=== PATIENT | female | born 1935 | race Caucasian/White ===

== ENCOUNTER 2016-09-23 13:15 | Emergency (ER) | payer MEDICARE, OTHER ==
[~2016-09-23] VITALS: Ht 165.1 cm; Wt 54.5 kg
[~2016-09-23 13:15] MED LIST: AMLO-512 PO; DULO30CA2 PO; HYDR-2924 PO; HYDR25TA PO; LABE200T PO; METF500T4 PO; PHEN50 PO; PHENY100 PO
[2016-09-23] MEDS ORDERED: SODIUM CHLORIDE 0.9% 1,000 ML IV ONE (15:45)
[2016-09-23 16:14] LABS: APPEARANCE,URINE CLEAR (CLEAR); GLUCOSE, URINE (UA) NEGATIVE (NEGATIVE); KETONES,URINE NEGATIVE (NEGATIVE); LEUKOCYTE ESTERASE ,URINE NEGATIVE (NEGATIVE); OCCULT BLOOD,URINE NEGATIVE (NEGATIVE); PROTEIN,URINE NEGATIVE (NEGATIVE)
[2016-09-23 16:17] LABS: ADD UA MICROSCOPIC NO
[2016-09-23 16:20] LABS: ANION GAP 9 mmol/L (8-16); CALCIUM, TOTAL 9.1 mg/dL (8.8-10.5); CARBON DIOXIDE 28 mmol/L (22-29); CHLORIDE 106 mmol/L (98-107); CREATININE 0.65 mg/dL (0.60-1.30); GLOMERULAR FILTR. RATE CALC > 60 mL/min (>60); SODIUM SERUM 143 mmol/L (136-145); UREA NITROGEN, BLOOD 12 mg/dL (7-18)
[2016-09-23 16:22] LABS: BASOPHILS % (AUTO) 0.4 % (0.0-2.0); EOSINOPHILS % (AUTO) 1.2 % (1.0-6.0); HEMATOCRIT 39.3 % (36-46); HEMOGLOBIN 12.9 g/dL (12.0-16.0); LYMPHOCYTES # (AUTO) 2.1 K/uL (1.0-4.8); LYMPHOCYTES % (AUTO) 25.9 % (22.0-44.0); MEAN CORPUSCULAR HEMOGLOBIN 29.5 pg (26.0-34.0); MEAN CORPUSCULAR HGB CONC 32.9 G/dL (31.0-37.0); MEAN CORPUSCULAR VOLUME 90 fL (80-100); MONOCYTES # (AUTO) 0.4 K/uL (0.1-1.0); MONOCYTES % (AUTO) 4.5 % (2.0-9.0); NEUTROPHILS # (AUTO) 5.5 K/uL (1.8-7.7); PLATELET COUNT (AUTO) 196 K/uL (150-450); RED BLOOD CELL COUNT(AUTO) 4.38 MIL/uL (4.00-5.20); RED CELL DISTRIBUTION WIDTH 13.5 % (11.5-14.5); WHITE BLOOD COUNT (AUTO) 8.1 K/uL (4.5-11.0)
[2016-09-23 16:28] LABS: ALANINE AMINOTRANSFERASE 26 U/L (12-78); ALBUMIN 3.8 g/dL (3.4-5.0); ASPARTATE AMINOTRANSFERASE 19 U/L (15-37); BILIRUBIN,TOTAL 0.4 mg/dL (0.1-1.0); TOTAL PROTEIN, SERUM 7.2 g/dL (6.4-8.2)
[2016-09-23 16:39] LABS: B-TYPE NATRIURETIC PEPTIDE 105 pg/mL (0-100)
[2016-09-23 17:20] VITALS: BP 185/87
== END 2016-09-23 18:11 | disposition home or self-care (01) ==
LOC: EMS 13:17
DX: M12.852 Other specific arthropathies, not elsewhere classified, left hip (principal); M16.12 Unilateral primary osteoarthritis, left hip; F20.9 Schizophrenia, unspecified; F41.9 Anxiety disorder, unspecified; I10 Essential (primary) hypertension; F32.9 Major depressive disorder, single episode, unspecified; E78.00 Pure hypercholesterolemia, unspecified
CPT/HCPCS: 36415; 71010; 73503; 80053; 80185; 80307; 81003; 83880; 84484; 85025; 93005; 96360; 96361; 99285; G0480; J7030

== ENCOUNTER 2017-01-20 17:57 | Emergency (ER) | payer MEDICARE, OTHER ==
[~2017-01-20] VITALS: Ht 165.1 cm; Wt 54.5 kg
[2017-01-20] MEDS ORDERED: METO-323 PO (18:29)
[2017-01-20] MEDS ORDERED: LEVE250T55 PO (18:29)
[2017-01-20] MEDS ORDERED: AMLO-512 PO (18:29)
[2017-01-20] MEDS ORDERED: BUSP5TAB20 PO (18:29)
[2017-01-20] MEDS ORDERED: LOSA25TA21 PO (18:29)
[2017-01-20] MEDS ORDERED: LORazepam 1 MG TABLET PO ONE (22:45)
[2017-01-20] MEDS ORDERED: KETOROLAC TROMETHAMINE 60 MG/2 ML VIAL IM ONE (22:45)
[2017-01-20 22:54] LABS: BASOPHILS % (AUTO) 0.5 % (0.0-2.0); EOSINOPHILS % (AUTO) 0.8 % (1.0-6.0); HEMATOCRIT 38.2 % (36-46); LYMPHOCYTES # (AUTO) 2.8 K/uL (1.0-4.8); LYMPHOCYTES % (AUTO) 36.2 % (22.0-44.0); MEAN CORPUSCULAR HEMOGLOBIN 30.6 pg (26.0-34.0); MEAN CORPUSCULAR VOLUME 90 fL (80-100); MONOCYTES # (AUTO) 0.5 K/uL (0.1-1.0); MONOCYTES % (AUTO) 6.3 % (2.0-9.0); NEUTROPHILS # (AUTO) 4.4 K/uL (1.8-7.7); NEUTROPHILS % (AUTO) 56.2 % (40.0-70.0); PLATELET COUNT (AUTO) 182 K/uL (150-450); RED BLOOD CELL COUNT(AUTO) 4.26 MIL/uL (4.00-5.20); RED CELL DISTRIBUTION WIDTH 14.5 % (11.5-14.5); WHITE BLOOD COUNT (AUTO) 7.8 K/uL (4.5-11.0)
[2017-01-20 22:58] VITALS: BP 188/87
[2017-01-20 23:04] LABS: ANION GAP 8 mmol/L (8-16); CARBON DIOXIDE 28 mmol/L (22-29); CHLORIDE 105 mmol/L (98-107); CREATININE 0.79 mg/dL (0.60-1.30); GLOMERULAR FILTR. RATE CALC > 60 mL/min (>60); POTASSIUM 3.9 mmol/L (3.5-5.1); SODIUM SERUM 141 mmol/L (136-145); UREA NITROGEN, BLOOD 19 mg/dL (7-18)
== END 2017-01-21 00:17 | disposition home or self-care (01) ==
LOC: EMS 17:59
DX: R07.89 Other chest pain (principal); F20.9 Schizophrenia, unspecified; I10 Essential (primary) hypertension; E78.00 Pure hypercholesterolemia, unspecified
CPT/HCPCS: 36415; 80048; 84484; 85025; 93005; 96372; 99285; J1885

== ENCOUNTER 2017-11-17 21:49 | Emergency (ER) | payer MEDICARE, OTHER ==
[~2017-11-17] VITALS: Ht 165.1 cm; Wt 54.0 kg
[~2017-11-17 21:49] MED LIST changes: +BUSP5TAB20 PO; -DULO30CA2 PO; -HYDR-2924 PO; -HYDR25TA PO; -LABE200T PO; +LEVE250T55 PO; +LOSA25TA21 PO; -METF500T4 PO; +METO25XL PO
[2017-11-18 01:04] LABS: BASOPHILS % (AUTO) 0.7 % (0.0-2.0); EOSINOPHILS % (AUTO) 0.3 % (1.0-6.0); HEMATOCRIT 41.5 % (36-46); HEMOGLOBIN 14.2 g/dL (12.0-16.0); LYMPHOCYTES # (AUTO) 2.4 K/uL (1.0-4.8); LYMPHOCYTES % (AUTO) 21.8 % (22.0-44.0); MEAN CORPUSCULAR HEMOGLOBIN 30.1 pg (26.0-34.0); MEAN CORPUSCULAR HGB CONC 34.3 G/dL (31.0-37.0); MEAN CORPUSCULAR VOLUME 88 fL (80-100); MONOCYTES # (AUTO) 0.5 K/uL (0.1-1.0); MONOCYTES % (AUTO) 4.6 % (2.0-9.0); NEUTROPHILS % (AUTO) 72.6 % (40.0-70.0); PLATELET COUNT (AUTO) 212 K/uL (150-450); RED BLOOD CELL COUNT(AUTO) 4.73 MIL/uL (4.00-5.20)
[2017-11-18 01:08] LABS: ANION GAP 7 mmol/L (8-16); CALCIUM, TOTAL 9.2 mg/dL (8.8-10.5); CARBON DIOXIDE 33 mmol/L (22-29); CHLORIDE 101 mmol/L (98-107); GLOMERULAR FILTR. RATE CALC 60 mL/min (>60); GLUCOSE,RANDOM 194 mg/dL (70-110); POTASSIUM 3.9 mmol/L (3.5-5.1); SODIUM SERUM 141 mmol/L (136-145); UREA NITROGEN, BLOOD 26 mg/dL (7-18)
[2017-11-18 01:15] LABS: ALANINE AMINOTRANSFERASE 51 U/L (12-78); ALBUMIN 4.1 g/dL (3.4-5.0); ALKALINE PHOSPHATASE 107 U/L (46-116); ASPARTATE AMINOTRANSFERASE 35 U/L (15-37); BILIRUBIN,TOTAL 0.4 mg/dL (0.1-1.0); PHENYTOIN (DILANTIN) 23.7 mcg/mL (10.0-20.0); TOTAL PROTEIN, SERUM 8.1 g/dL (6.4-8.2)
[2017-11-18 01:26] LABS: AMPHET/METH SCREEN,URINE NEGATIVE (NEGATIVE); APPEARANCE,URINE CLEAR (CLEAR); BARBITURATE SCREEN, URINE NEGATIVE (NEGATIVE); BENZODIAZEPINES SCREEN,URINE NEGATIVE (NEGATIVE); BILIRUBIN,URINE NEGATIVE (NEGATIVE); CANNABINOID SCREEN,URINE NEGATIVE (NEGATIVE); COCAINE SCREEN,URINE NEGATIVE (NEGATIVE); GLUCOSE, URINE (UA) NEGATIVE (NEGATIVE); KETONES,URINE NEGATIVE (NEGATIVE); LEUKOCYTE ESTERASE ,URINE TRACE (NEGATIVE); METHADONE SCREEN, URINE NEGATIVE (NEGATIVE); NITRATE,URINE NEGATIVE (NEGATIVE); OCCULT BLOOD,URINE NEGATIVE (NEGATIVE); OPIATE SCREEN,URINE NEGATIVE (NEGATIVE); PH,URINE 7.5 (5.0-8.0); PROTEIN,URINE NEGATIVE (NEGATIVE); UROBILINOGEN,URINE 0.2 mg/dL (<=1.0)
[2017-11-18 01:27] LABS: PHENCYCLIDINE SCREEN,URINE NEGATIVE (NEGATIVE)
[2017-11-18 01:42] LABS: BACTERIA,URINE Rare /HPF (None Seen); RBC,URINE 0-2 /HPF (0-2); SQUAMOUS EPITHELIAL CELL,UR Rare /LPF (None Seen)
[2017-11-18] MEDS ORDERED: KETOROLAC TROMETHAMINE 30 MG/ML VIAL IVP ONE (02:30)
[2017-11-18] MEDS ORDERED: LORazepam 2 MG/ML VIAL IVP ONE (02:30)
[2017-11-18] MEDS ORDERED: SODIUM CHLORIDE 0.9% 1,000 ML IV ONE (02:30)
[2017-11-18 04:52] VITALS: BP 140/80
== END 2017-11-18 04:58 | disposition home or self-care (01) ==
LOC: EMS 21:50
DX: R07.89 Other chest pain (principal); T42.0X5A Adverse effect of hydantoin derivatives, initial encounter; F41.9 Anxiety disorder, unspecified; E78.00 Pure hypercholesterolemia, unspecified; I10 Essential (primary) hypertension; G40.909 Epilepsy, unspecified, not intractable, without status epilepticus; Y92.89 Other specified places as the place of occurrence of the external cause; Z79.899 Other long term (current) drug therapy
CPT/HCPCS: 36415; 80053; 80185; 80307; 81001; 85025; 87086; 93005; 96374; 96375; 99285; G0480; J1885; J2060; J7030

== ENCOUNTER 2018-05-14 09:57 | Emergency (ER) | payer MEDICARE, OTHER ==
[~2018-05-14] VITALS: Ht 162.6 cm; Wt 62.5 kg
[~2018-05-14 09:57] MED LIST changes: -LOSA25TA21 PO; +LOSA25TA41 PO; -PHEN50 PO
[2018-05-14] MEDS ORDERED: KETOROLAC TROMETHAMINE 30 MG/ML VIAL IVP ONE (10:30)
[2018-05-14] MEDS ORDERED: ACETAMINOPHEN 325 MG TABLET PO ONE (10:30)
[2018-05-14] MEDS ORDERED: LIDOCAINE 5% TRANSDERMAL PATCH TD ONE (10:30)
[2018-05-14] MEDS ORDERED: CYCLOBENZAPRINE HCL 10 MG TABLET PO ONE (10:30)
[2018-05-14] MEDS ORDERED: MORPHINE SULFATE 4 MG/ML SYRINGE IVP ONE (12:30)
[2018-05-14 12:48] VITALS: BP 162/80
== END 2018-05-14 13:41 | disposition home or self-care (01) ==
LOC: EMS 10:00
DX: M54.16 Radiculopathy, lumbar region (principal); M25.562 Pain in left knee; E78.00 Pure hypercholesterolemia, unspecified; I10 Essential (primary) hypertension; F41.9 Anxiety disorder, unspecified; F32.9 Major depressive disorder, single episode, unspecified; F20.9 Schizophrenia, unspecified; G89.29 Other chronic pain; Z90.710 Acquired absence of both cervix and uterus
CPT/HCPCS: 96374; 96375; 99284; J1885; J2270

== ENCOUNTER 2018-05-26 13:54 | Inpatient (IN) | payer MEDICARE, OTHER ==
[~2018-05-26] VITALS: Ht 165.1 cm; Wt 63.5 kg
[2018-05-26] MEDS ORDERED: LORazepam 1 MG TABLET PO ONE (15:00)
[2018-05-26 15:17] LABS: BASOPHILS % (AUTO) 0.2 % (0.0-2.0); EOSINOPHILS % (AUTO) 0.3 % (1.0-6.0); HEMATOCRIT 36.8 % (36-46); HEMOGLOBIN 12.6 g/dL (12.0-16.0); LYMPHOCYTES # (AUTO) 1.6 K/uL (1.0-4.8); LYMPHOCYTES % (AUTO) 19.4 % (22.0-44.0); MEAN CORPUSCULAR HEMOGLOBIN 30.5 pg (26.0-34.0); MEAN CORPUSCULAR HGB CONC 34.3 G/dL (31.0-37.0); MEAN CORPUSCULAR VOLUME 89 fL (80-100); MONOCYTES # (AUTO) 0.5 K/uL (0.1-1.0); MONOCYTES % (AUTO) 6.4 % (2.0-9.0); NEUTROPHILS % (AUTO) 73.7 % (40.0-70.0); PLATELET COUNT (AUTO) 163 K/uL (150-450); RED BLOOD CELL COUNT(AUTO) 4.14 MIL/uL (4.00-5.20); RED CELL DISTRIBUTION WIDTH 13.3 % (11.5-14.5)
[2018-05-26 15:27] LABS: ANION GAP 9 mmol/L (8-16); CALCIUM, TOTAL 8.3 mg/dL (8.8-10.5); CARBON DIOXIDE 27 mmol/L (22-29); CHLORIDE 105 mmol/L (98-107); CREATININE 0.77 mg/dL (0.60-1.30); GLOMERULAR FILTR. RATE CALC > 60 mL/min (>60); GLUCOSE,RANDOM 218 mg/dL (70-110); POTASSIUM 3.7 mmol/L (3.5-5.1); SODIUM SERUM 141 mmol/L (136-145); UREA NITROGEN, BLOOD 19 mg/dL (7-18)
[2018-05-26 15:34] LABS: ALANINE AMINOTRANSFERASE 32 U/L (12-78); ALBUMIN 3.4 g/dL (3.4-5.0); ALKALINE PHOSPHATASE 79 U/L (46-116); ASPARTATE AMINOTRANSFERASE 23 U/L (15-37); BILIRUBIN,TOTAL 0.2 mg/dL (0.1-1.0); CREATINE KINASE, TOTAL ONLY 51 U/L (26-192); PHENYTOIN (DILANTIN) 24.2 mcg/mL (10.0-20.0); TOTAL PROTEIN, SERUM 6.7 g/dL (6.4-8.2)
[2018-05-26 15:41] LABS: B-TYPE NATRIURETIC PEPTIDE 121 pg/mL (0-100)
[2018-05-26 19:27] LABS: APPEARANCE,URINE CLEAR (CLEAR); BILIRUBIN,URINE NEGATIVE (NEGATIVE); GLUCOSE, URINE (UA) 100 mg/dL (NEGATIVE); KETONES,URINE NEGATIVE (NEGATIVE); LEUKOCYTE ESTERASE ,URINE NEGATIVE (NEGATIVE); NITRATE,URINE NEGATIVE (NEGATIVE); OCCULT BLOOD,URINE NEGATIVE (NEGATIVE); PROTEIN,URINE NEGATIVE (NEGATIVE); UROBILINOGEN,URINE 0.2 mg/dL (<=1.0)
[2018-05-26 19:36] LABS: BACTERIA,URINE None Seen /HPF (None Seen); RBC,URINE None Seen /HPF (0-2); SQUAMOUS EPITHELIAL CELL,UR Few /LPF (None Seen)
[2018-05-26] MEDS ORDERED: MAGNESIUM HYDROXIDE SUSPENSION 30 ML UDCUP PO PRN (20:30)
[2018-05-26] MEDS ORDERED: ALBUTEROL SULFATE 2.5 MG/0.5 ML NEB SOLUTION NEB PRN (20:30)
[2018-05-26] MEDS ORDERED: DEXTROSE 50%-WATER 25 GM/50 ML SYRINGE IVP PRN (20:30)
[2018-05-26 23:00] VITALS: BP 148/83
[2018-05-26] MEDS ORDERED: SODIUM CHLORIDE 0.9% 250 ML IV ONE (23:03)
[2018-05-26] MEDS: DOCUSATE SODIUM 100 MG CAPSULE PO SCH (23:16)
[2018-05-26] MEDS: ASPIRIN 81 MG CHEWABLE TABLET PO SCH (23:17)
[2018-05-26] MEDS: AmLODIPine BESYLATE 5 MG TABLET PO SCH (23:18)
[2018-05-26] MEDS: INSULIN LISPRO 100 UNITS/ML SQ PRN (23:26)
[2018-05-27] VITALS (7 sets, daily range): BP systolic 136–180; BP diastolic 69–84
[2018-05-27] MEDS: CefTRIAXone 1 GM/DEXTROSE 50 ML IV SCH ×2 (00:41→23:35)
[2018-05-27 05:14] LABS: GLUCOMETER DEV NAME(LOC) 6N.1; GLUCOSE,POINT OF CARE 146 MG/DL (70-110)
[2018-05-27] MEDS: INSULIN LISPRO 100 UNITS/ML SQ PRN ×3 (06:24→17:09)
[2018-05-27] MEDS: PANTOPRAZOLE SODIUM 40 MG DR TABLET PO SCH (08:30)
[2018-05-27] MEDS: DOCUSATE SODIUM 100 MG CAPSULE PO SCH ×2 (08:30→20:07)
[2018-05-27] MEDS: METOPROLOL SUCCINATE 25 MG ER TABLET PO SCH (08:30)
[2018-05-27] MEDS: LevETIRAcetam 250 MG TABLET PO SCH (08:30)
[2018-05-27] MEDS: ACETAMINOPHEN 325 MG TABLET PO PRN ×2 (08:31→20:07)
[2018-05-27] MEDS: ASPIRIN 81 MG CHEWABLE TABLET PO SCH (08:32)
[2018-05-27 11:04] LABS: GLUCOMETER DEV NAME(LOC) 6N.2; GLUCOSE,POINT OF CARE 146 MG/DL (70-110)
[2018-05-27 11:13] LABS: GLUCOMETER DEV NAME(LOC) 6N.1; GLUCOSE,POINT OF CARE 161 MG/DL (70-110)
[2018-05-27] MEDS ORDERED: ESZOPICLONE 2 MG TABLET PO PRN (12:15)
[2018-05-27] MEDS: MetFORMIN HCL 500 MG TABLET PO SCH (17:14)
[2018-05-27] MEDS: AmLODIPine BESYLATE 5 MG TABLET PO SCH (17:14)
[2018-05-27 19:49] LABS: GLUCOMETER DEV NAME(LOC) 6N.2; GLUCOSE,POINT OF CARE 158 MG/DL (70-110)
[2018-05-27] MEDS: PHENYTOIN SODIUM 100 MG ER CAPSULE PO SCH (20:08)
[2018-05-27 23:39] LABS: GLUCOMETER DEV NAME(LOC) 6N.1; GLUCOSE,POINT OF CARE 108 MG/DL (70-110)
[2018-05-28] MEDS: LORazepam 0.5 MG TABLET PO PRN ×2 (03:48→13:09)
[2018-05-28 04:00] VITALS: BP 171/74
[2018-05-28 06:00] VITALS: BP 163/75
[2018-05-28] MEDS: METOPROLOL SUCCINATE 25 MG ER TABLET PO SCH (06:33)
[2018-05-28 06:59] LABS: GLUCOMETER DEV NAME(LOC) 6N.2; GLUCOSE,POINT OF CARE 140 MG/DL (70-110)
[2018-05-28 07:38] VITALS: BP 175/76
[2018-05-28] MEDS: ASPIRIN 81 MG CHEWABLE TABLET PO SCH (08:38)
[2018-05-28] MEDS: LevETIRAcetam 250 MG TABLET PO SCH (08:38)
[2018-05-28] MEDS: DOCUSATE SODIUM 100 MG CAPSULE PO SCH ×2 (08:38→19:48)
[2018-05-28] MEDS: MetFORMIN HCL 500 MG TABLET PO SCH ×2 (08:39→17:45)
[2018-05-28] MEDS: PANTOPRAZOLE SODIUM 40 MG DR TABLET PO SCH (08:39)
[2018-05-28] MEDS: PHENYTOIN SODIUM 100 MG ER CAPSULE PO SCH ×2 (08:43→19:47)
[2018-05-28] MEDS ORDERED: LevETIRAcetam 250 MG TABLET PO SCH (09:00)
[2018-05-28] MEDS ORDERED: DULoxetine HCL 20 MG CAPSULE PO SCH (09:00)
[2018-05-28] MEDS ORDERED: LOSARTAN POTASSIUM 25 MG TABLET PO SCH (09:00)
[2018-05-28 09:27] VITALS: BP 152/67
[2018-05-28] MEDS: INSULIN LISPRO 100 UNITS/ML SQ PRN ×2 (12:22→17:51)
[2018-05-28 15:45] VITALS: BP 149/76
[2018-05-28 19:29] VITALS: BP 147/69
[2018-05-28] MEDS: AmLODIPine BESYLATE 5 MG TABLET PO SCH (19:48)
[2018-05-28 19:49] LABS: GLUCOMETER DEV NAME(LOC) 6N.1; GLUCOSE,POINT OF CARE 117 MG/DL (70-110)
[2018-05-28 19:49] LABS: GLUCOMETER DEV NAME(LOC) 6N.2; GLUCOSE,POINT OF CARE 141 MG/DL (70-110)
[2018-05-29 06:24] LABS: GLUCOMETER DEV NAME(LOC) 6N.1; GLUCOSE,POINT OF CARE 133 MG/DL (70-110)
== END 2018-05-28 21:15 | DRG 690 ==
LOC: EMS 13:55 → 6N 20:00
PROVIDERS: ADMIT Internal Medicine; ATTEND Internal Medicine
DX: N39.0 Urinary tract infection, site not specified (principal); R45.851 Suicidal ideations; F33.2 Major depressive disorder, recurrent severe without psychotic features; F20.9 Schizophrenia, unspecified; E11.9 Type 2 diabetes mellitus without complications; I10 Essential (primary) hypertension; F41.9 Anxiety disorder, unspecified; G40.909 Epilepsy, unspecified, not intractable, without status epilepticus; E78.00 Pure hypercholesterolemia, unspecified; Z87.440 Personal history of urinary (tract) infections; M54.9 Dorsalgia, unspecified; Z90.710 Acquired absence of both cervix and uterus; Z82.49 Family history of ischemic heart disease and other diseases of the circulatory system; Z96.641 Presence of right artificial hip joint; B19.20 Unspecified viral hepatitis C without hepatic coma; G89.29 Other chronic pain; Z91.5 Personal history of self-harm
CPT/HCPCS: 83036; 87086; 93005; 97162; 97530; G0378; J0696; J7050

== ENCOUNTER 2018-05-28 16:51 | Inpatient (IN) | payer MEDICARE, MEDICAID ==
[~2018-05-28] VITALS: Ht 165.1 cm; Wt 57.6 kg
[2018-05-28] MEDS ORDERED: ESZOPICLONE 2 MG TABLET PO PRN (21:15)
[2018-05-28 21:44] VITALS: BP 122/73
[2018-05-28] MEDS ORDERED: -PHARMACY VACCINE NOTE- MISC ONE (23:00)
[2018-05-28] MEDS ORDERED: ALBUTEROL SULFATE HFA 90 MCG/PUFF 8 GM INHALER IH PRN (23:15)
[2018-05-28] MEDS ORDERED: ACETAMINOPHEN 325 MG TABLET PO PRN (23:15)
[2018-05-28] MEDS ORDERED: MAG HYDROX/AL HYDROX/SIMETH ES 30 ML SUSPENSION UDCUP PO PRN (23:15)
[2018-05-28] MEDS ORDERED: NICOTINE 14 MG/24 HOUR PATCH TD PRN (23:15)
[2018-05-28] MEDS ORDERED: DOCUSATE SODIUM 100 MG CAPSULE PO PRN (23:15)
[2018-05-28] MEDS ORDERED: ONDANSETRON HCL 4 MG TABLET PO PRN (23:15)
[2018-05-28] MEDS ORDERED: MAGNESIUM HYDROXIDE SUSPENSION 30 ML UDCUP PO PRN (23:15)
[2018-05-28] MEDS ORDERED: LOPERAMIDE HCL 2 MG CAPSULE PO PRN (23:15)
[2018-05-28] MEDS ORDERED: GuaiFENesin/D-METHORPHAN [SUGAR-FREE] 200-20MG/10 ML SYRUP UDCUP PO PRN (23:15)
[2018-05-28] MEDS ORDERED: PETROLATUM,WHITE 71 GM JELLY TP PRN (23:15)
[2018-05-28] MEDS ORDERED: DEXTROSE 50%-WATER 25 GM/50 ML SYRINGE IVP PRN (23:30)
[2018-05-29] VITALS (7 sets, daily range): BP systolic 129–186; BP diastolic 70–122
[2018-05-29] MEDS: IBUPROFEN 400 MG TABLET PO PRN (03:32)
[2018-05-29 03:54] LABS: GLUCOMETER DEV NAME(LOC) 3EX.; GLUCOSE,POINT OF CARE 127 MG/DL (70-110)
[2018-05-29 05:55] LABS: GLUCOMETER DEV NAME(LOC) 3EX.; GLUCOSE,POINT OF CARE 150 MG/DL (70-110)
[2018-05-29 06:35] LABS: BASOPHILS % (AUTO) 0.3 % (0.0-2.0); HEMATOCRIT 36.8 % (36-46); HEMOGLOBIN 13.2 g/dL (12.0-16.0); LYMPHOCYTES # (AUTO) 1.1 K/uL (1.0-4.8); LYMPHOCYTES % (AUTO) 13.8 % (22.0-44.0); MEAN CORPUSCULAR HEMOGLOBIN 31.6 pg (26.0-34.0); MEAN CORPUSCULAR HGB CONC 35.8 G/dL (31.0-37.0); MEAN CORPUSCULAR VOLUME 88 fL (80-100); MONOCYTES # (AUTO) 0.5 K/uL (0.1-1.0); NEUTROPHILS # (AUTO) 6.1 K/uL (1.8-7.7); NEUTROPHILS % (AUTO) 78.9 % (40.0-70.0); PLATELET COUNT (AUTO) 163 K/uL (150-450); RED BLOOD CELL COUNT(AUTO) 4.18 MIL/uL (4.00-5.20); RED CELL DISTRIBUTION WIDTH 13.3 % (11.5-14.5)
[2018-05-29] MEDS: MetFORMIN HCL 500 MG TABLET PO SCH ×2 (06:48→16:37)
[2018-05-29] MEDS: INSULIN LISPRO 100 UNITS/ML SQ PRN ×4 (06:57→22:21)
[2018-05-29 07:05] LABS: ALANINE AMINOTRANSFERASE 32 U/L (12-78); ALBUMIN 3.2 g/dL (3.4-5.0); ALKALINE PHOSPHATASE 84 U/L (46-116); ANION GAP 5 mmol/L (8-16); ASPARTATE AMINOTRANSFERASE 22 U/L (15-37); BILIRUBIN,TOTAL 0.2 mg/dL (0.1-1.0); CALCIUM, TOTAL 8.4 mg/dL (8.8-10.5); CARBON DIOXIDE 31 mmol/L (22-29); CHLORIDE 106 mmol/L (98-107); CHOL/HDL RATIO 2.4 (3.9-5.7); CHOLESTEROL 207 mg/dL (131-200); CREATININE 0.86 mg/dL (0.60-1.30); GLUCOSE,RANDOM 145 mg/dL (70-110); HDL CHOLESTEROL 88 mg/dL (40-60); LDL CHOL (CALC.) 101 mg/dL (0-130); POTASSIUM 4.5 mmol/L (3.5-5.1); SODIUM SERUM 142 mmol/L (136-145); THYROID STIMULATING HORMONE 3.89 uIU/mL (0.36-3.74); TOTAL PROTEIN, SERUM 6.3 g/dL (6.4-8.2); TRIGLYCERIDES 88 mg/dL (15-150); UREA NITROGEN, BLOOD 21 mg/dL (7-18)
[2018-05-29 07:19] LABS: GLOMERULAR FILTR. RATE CALC > 60 mL/min (>60)
[2018-05-29 07:48] LABS: HEMOGLOBIN A1C 7.6 % (4.5-6.2)
[2018-05-29] MEDS: LevETIRAcetam 250 MG TABLET PO SCH (08:53)
[2018-05-29] MEDS: DOCUSATE SODIUM 100 MG CAPSULE PO SCH ×2 (08:53→16:36)
[2018-05-29] MEDS: PHENYTOIN SODIUM 100 MG ER CAPSULE PO SCH ×2 (08:53→16:36)
[2018-05-29] MEDS: ASPIRIN 81 MG CHEWABLE TABLET PO SCH (08:53)
[2018-05-29] MEDS: PANTOPRAZOLE SODIUM 40 MG DR TABLET PO SCH (08:53)
[2018-05-29] MEDS ORDERED: LOSARTAN POTASSIUM 25 MG TABLET PO SCH (09:00)
[2018-05-29] MEDS ORDERED: DULoxetine HCL 20 MG CAPSULE PO SCH (09:00)
[2018-05-29] MEDS ORDERED: METOPROLOL SUCCINATE 25 MG ER TABLET PO SCH (09:00)
[2018-05-29 11:09] LABS: GLUCOMETER DEV NAME(LOC) 3EX.; GLUCOSE,POINT OF CARE 125 MG/DL (70-110)
[2018-05-29] MEDS: CloNIDine HCL 0.1 MG TABLET PO PRN (13:20)
[2018-05-29 16:34] LABS: GLUCOMETER DEV NAME(LOC) 3EX.; GLUCOSE,POINT OF CARE 146 MG/DL (70-110)
[2018-05-29] MEDS: HydrALAZINE HCL 25 MG TABLET PO SCH (16:37)
[2018-05-29] MEDS ORDERED: HydrALAZINE HCL 25 MG TABLET PO SCH (17:00)
[2018-05-29 20:54] LABS: GLUCOMETER DEV NAME(LOC) 3EX.; GLUCOSE,POINT OF CARE 201 MG/DL (70-110)
[2018-05-29] MEDS: AmLODIPine BESYLATE 10 MG TABLET PO SCH (22:20)
[2018-05-30] MEDS: IBUPROFEN 400 MG TABLET PO PRN ×2 (03:09→21:28)
[2018-05-30 03:11] VITALS: BP 158/74
[2018-05-30 05:39] LABS: GLUCOMETER DEV NAME(LOC) 3EX.; GLUCOSE,POINT OF CARE 133 MG/DL (70-110)
[2018-05-30] MEDS: MetFORMIN HCL 500 MG TABLET PO SCH ×2 (07:03→16:48)
[2018-05-30] MEDS: HydrALAZINE HCL 25 MG TABLET PO SCH (08:54)
[2018-05-30] MEDS: LevETIRAcetam 250 MG TABLET PO SCH (08:55)
[2018-05-30] MEDS: LOSARTAN POTASSIUM 50 MG TABLET PO SCH (08:55)
[2018-05-30] MEDS: DOCUSATE SODIUM 100 MG CAPSULE PO SCH ×2 (08:55→16:48)
[2018-05-30] MEDS: DULoxetine HCL 30 MG CAPSULE PO SCH (08:55)
[2018-05-30] MEDS: ASPIRIN 81 MG CHEWABLE TABLET PO SCH (08:55)
[2018-05-30] MEDS: PHENYTOIN SODIUM 100 MG ER CAPSULE PO SCH ×2 (08:56→16:50)
[2018-05-30] MEDS: PANTOPRAZOLE SODIUM 40 MG DR TABLET PO SCH (08:56)
[2018-05-30 09:12] VITALS: BP 155/66
[2018-05-30 11:39] LABS: GLUCOMETER DEV NAME(LOC) 3EX.; GLUCOSE,POINT OF CARE 170 MG/DL (70-110)
[2018-05-30] MEDS: INSULIN LISPRO 100 UNITS/ML SQ PRN (11:55)
[2018-05-30] MEDS: HydrALAZINE HCL 50 MG TABLET PO SCH ×2 (13:21→16:47)
[2018-05-30 16:03] VITALS: BP 149/72
[2018-05-30 17:00] LABS: GLUCOMETER DEV NAME(LOC) 3E.C; GLUCOSE,POINT OF CARE 126 MG/DL (70-110)
[2018-05-30] MEDS: AmLODIPine BESYLATE 10 MG TABLET PO SCH (20:51)
[2018-05-30 21:14] LABS: GLUCOMETER DEV NAME(LOC) 3EX.; GLUCOSE,POINT OF CARE 128 MG/DL (70-110)
[2018-05-30 21:28] VITALS: BP 156/72
[2018-05-30 22:30] VITALS: BP 147/74
[2018-05-31] MEDS: IBUPROFEN 400 MG TABLET PO PRN (03:51)
[2018-05-31 03:55] VITALS: BP 169/74
[2018-05-31 05:05] VITALS: BP 192/88
[2018-05-31] MEDS: CloNIDine HCL 0.1 MG TABLET PO PRN (05:17)
[2018-05-31 06:00] LABS: GLUCOMETER DEV NAME(LOC) 3EX.; GLUCOSE,POINT OF CARE 144 MG/DL (70-110)
[2018-05-31] MEDS: LORazepam 0.5 MG TABLET PO PRN (06:16)
[2018-05-31] MEDS: MetFORMIN HCL 500 MG TABLET PO SCH ×2 (06:47→16:33)
[2018-05-31] MEDS: INSULIN LISPRO 100 UNITS/ML SQ PRN ×3 (07:23→20:56)
[2018-05-31] MEDS: ASPIRIN 81 MG CHEWABLE TABLET PO SCH (09:02)
[2018-05-31] MEDS: HydrALAZINE HCL 50 MG TABLET PO SCH ×2 (09:02→13:27)
[2018-05-31] MEDS: LevETIRAcetam 250 MG TABLET PO SCH (09:03)
[2018-05-31] MEDS: PANTOPRAZOLE SODIUM 40 MG DR TABLET PO SCH (09:03)
[2018-05-31] MEDS: LOSARTAN POTASSIUM 50 MG TABLET PO SCH (09:03)
[2018-05-31] MEDS: PHENYTOIN SODIUM 100 MG ER CAPSULE PO SCH ×2 (09:03→16:33)
[2018-05-31] MEDS: DOCUSATE SODIUM 100 MG CAPSULE PO SCH ×2 (09:03→16:33)
[2018-05-31 09:04] VITALS: BP 136/70
[2018-05-31] MEDS: DULoxetine HCL 30 MG CAPSULE PO SCH (09:04)
[2018-05-31 09:07] VITALS: BP 148/87
[2018-05-31 11:40] LABS: GLUCOMETER DEV NAME(LOC) 3EX.; GLUCOSE,POINT OF CARE 142 MG/DL (70-110)
[2018-05-31 13:20] VITALS: BP 155/73
[2018-05-31 16:04] VITALS: BP 139/66
[2018-05-31 16:29] LABS: GLUCOMETER DEV NAME(LOC) 3EX.; GLUCOSE,POINT OF CARE 135 MG/DL (70-110)
[2018-05-31] MEDS ORDERED: HydrALAZINE HCL 50 MG TABLET PO SCH (17:00)
[2018-05-31] MEDS: AmLODIPine BESYLATE 10 MG TABLET PO SCH (20:46)
[2018-05-31 21:05] LABS: GLUCOMETER DEV NAME(LOC) 3EX.; GLUCOSE,POINT OF CARE 156 MG/DL (70-110)
[2018-06-01 00:49] VITALS: BP 145/80
[2018-06-01] MEDS: LORazepam 0.5 MG TABLET PO PRN ×2 (02:15→08:51)
[2018-06-01 05:45] LABS: GLUCOMETER DEV NAME(LOC) 3EX.; GLUCOSE,POINT OF CARE 138 MG/DL (70-110)
[2018-06-01] MEDS: MetFORMIN HCL 500 MG TABLET PO SCH ×2 (06:56→16:40)
[2018-06-01 08:45] VITALS: BP 164/81
[2018-06-01] MEDS: IBUPROFEN 400 MG TABLET PO PRN (08:50)
[2018-06-01] MEDS: HydrALAZINE HCL 25 MG TABLET PO SCH ×3 (08:51→16:41)
[2018-06-01] MEDS: LOSARTAN POTASSIUM 50 MG TABLET PO SCH (08:51)
[2018-06-01] MEDS: ASPIRIN 81 MG CHEWABLE TABLET PO SCH (08:51)
[2018-06-01] MEDS: DULoxetine HCL 30 MG CAPSULE PO SCH (08:51)
[2018-06-01] MEDS: LevETIRAcetam 250 MG TABLET PO SCH (08:51)
[2018-06-01] MEDS: DOCUSATE SODIUM 100 MG CAPSULE PO SCH ×2 (08:51→16:40)
[2018-06-01] MEDS: PANTOPRAZOLE SODIUM 40 MG DR TABLET PO SCH (08:51)
[2018-06-01] MEDS: PHENYTOIN SODIUM 100 MG ER CAPSULE PO SCH ×2 (08:53→16:40)
[2018-06-01 11:39] LABS: GLUCOMETER DEV NAME(LOC) 3EX.; GLUCOSE,POINT OF CARE 164 MG/DL (70-110)
[2018-06-01] MEDS: INSULIN LISPRO 100 UNITS/ML SQ PRN ×2 (12:23→17:39)
[2018-06-01 13:10] VITALS: BP 128/61
[2018-06-01 14:34] LABS: APPEARANCE,URINE CLEAR (CLEAR); BILIRUBIN,URINE NEGATIVE (NEGATIVE); GLUCOSE, URINE (UA) NEGATIVE (NEGATIVE); KETONES,URINE NEGATIVE (NEGATIVE); LEUKOCYTE ESTERASE ,URINE NEGATIVE (NEGATIVE); NITRATE,URINE NEGATIVE (NEGATIVE); OCCULT BLOOD,URINE NEGATIVE (NEGATIVE); PROTEIN,URINE NEGATIVE (NEGATIVE); UROBILINOGEN,URINE 0.2 mg/dL (<=1.0)
[2018-06-01 16:01] VITALS: BP 134/84
[2018-06-01 16:35] LABS: GLUCOMETER DEV NAME(LOC) 3EX.; GLUCOSE,POINT OF CARE 143 MG/DL (70-110)
[2018-06-01] MEDS: AmLODIPine BESYLATE 10 MG TABLET PO SCH (20:24)
[2018-06-01 21:25] LABS: GLUCOMETER DEV NAME(LOC) 3EX.; GLUCOSE,POINT OF CARE 110 MG/DL (70-110)
[2018-06-02] MEDS: MetFORMIN HCL 500 MG TABLET PO SCH ×2 (06:36→16:44)
[2018-06-02] MEDS: INSULIN LISPRO 100 UNITS/ML SQ PRN ×3 (06:48→17:45)
[2018-06-02 09:00] VITALS: BP 144/69
[2018-06-02] MEDS ORDERED: DULoxetine HCL 20 MG CAPSULE PO SCH (09:00)
[2018-06-02] MEDS: DOCUSATE SODIUM 100 MG CAPSULE PO SCH ×2 (09:08→16:44)
[2018-06-02] MEDS: LOSARTAN POTASSIUM 50 MG TABLET PO SCH (09:08)
[2018-06-02] MEDS: ASPIRIN 81 MG CHEWABLE TABLET PO SCH (09:08)
[2018-06-02] MEDS: HydrALAZINE HCL 25 MG TABLET PO SCH ×3 (09:08→16:44)
[2018-06-02] MEDS: LevETIRAcetam 250 MG TABLET PO SCH ×2 (09:10→16:44)
[2018-06-02] MEDS: PANTOPRAZOLE SODIUM 40 MG DR TABLET PO SCH (09:10)
[2018-06-02] MEDS: PHENYTOIN SODIUM 100 MG ER CAPSULE PO SCH ×2 (09:10→16:44)
[2018-06-02] MEDS: DULoxetine HCL 30 MG CAPSULE PO SCH (09:10)
[2018-06-02 11:34] LABS: GLUCOMETER DEV NAME(LOC) 3EX.; GLUCOSE,POINT OF CARE 145 MG/DL (70-110)
[2018-06-02 11:35] LABS: GLUCOMETER DEV NAME(LOC) 3EX.; GLUCOSE,POINT OF CARE 141 MG/DL (70-110)
[2018-06-02 13:06] VITALS: BP 142/71
[2018-06-02 16:08] VITALS: BP 133/70
[2018-06-02 18:34] LABS: GLUCOMETER DEV NAME(LOC) 3EX.; GLUCOSE,POINT OF CARE 190 MG/DL (70-110)
[2018-06-02] MEDS: AmLODIPine BESYLATE 10 MG TABLET PO SCH (20:58)
[2018-06-02 21:05] LABS: GLUCOMETER DEV NAME(LOC) 3EX.; GLUCOSE,POINT OF CARE 100 MG/DL (70-110)
[2018-06-03] MEDS: IBUPROFEN 400 MG TABLET PO PRN (02:32)
[2018-06-03 02:40] VITALS: BP 152/77
[2018-06-03 06:20] LABS: GLUCOMETER DEV NAME(LOC) 3EX.; GLUCOSE,POINT OF CARE 142 MG/DL (70-110)
[2018-06-03] MEDS: INSULIN LISPRO 100 UNITS/ML SQ PRN ×3 (06:58→21:19)
[2018-06-03] MEDS: MetFORMIN HCL 500 MG TABLET PO SCH ×2 (07:09→17:34)
[2018-06-03 08:00] VITALS: BP 174/82
[2018-06-03] MEDS: LOSARTAN POTASSIUM 50 MG TABLET PO SCH (08:01)
[2018-06-03] MEDS: DOCUSATE SODIUM 100 MG CAPSULE PO SCH ×2 (08:01→17:35)
[2018-06-03] MEDS: LevETIRAcetam 250 MG TABLET PO SCH ×2 (08:01→17:34)
[2018-06-03] MEDS: PANTOPRAZOLE SODIUM 40 MG DR TABLET PO SCH (08:01)
[2018-06-03] MEDS: PHENYTOIN SODIUM 100 MG ER CAPSULE PO SCH ×2 (08:01→17:34)
[2018-06-03] MEDS: DULoxetine HCL 30 MG CAPSULE PO SCH (08:01)
[2018-06-03] MEDS: ASPIRIN 81 MG CHEWABLE TABLET PO SCH (08:01)
[2018-06-03] MEDS: HydrALAZINE HCL 25 MG TABLET PO SCH ×3 (08:02→17:35)
[2018-06-03 11:19] LABS: GLUCOMETER DEV NAME(LOC) 3EX.; GLUCOSE,POINT OF CARE 128 MG/DL (70-110)
[2018-06-03 16:44] LABS: GLUCOMETER DEV NAME(LOC) 3EX.; GLUCOSE,POINT OF CARE 163 MG/DL (70-110)
[2018-06-03 17:47] VITALS: BP 140/75
[2018-06-03] MEDS: AmLODIPine BESYLATE 10 MG TABLET PO SCH (20:45)
[2018-06-03 21:14] LABS: GLUCOMETER DEV NAME(LOC) 3EX.; GLUCOSE,POINT OF CARE 152 MG/DL (70-110)
[2018-06-04 05:35] LABS: GLUCOMETER DEV NAME(LOC) 3EX.; GLUCOSE,POINT OF CARE 129 MG/DL (70-110)
[2018-06-04] MEDS: MetFORMIN HCL 500 MG TABLET PO SCH ×2 (06:30→16:20)
[2018-06-04 08:10] VITALS: BP 156/78
[2018-06-04] MEDS: DULoxetine HCL 20 MG CAPSULE PO SCH (09:11)
[2018-06-04] MEDS: DOCUSATE SODIUM 100 MG CAPSULE PO SCH ×2 (09:11→16:20)
[2018-06-04] MEDS: ASPIRIN 81 MG CHEWABLE TABLET PO SCH (09:11)
[2018-06-04] MEDS: LOSARTAN POTASSIUM 50 MG TABLET PO SCH (09:11)
[2018-06-04] MEDS: HydrALAZINE HCL 25 MG TABLET PO SCH ×3 (09:12→16:20)
[2018-06-04] MEDS: PHENYTOIN SODIUM 100 MG ER CAPSULE PO SCH ×2 (09:12→16:20)
[2018-06-04] MEDS: PANTOPRAZOLE SODIUM 40 MG DR TABLET PO SCH (09:12)
[2018-06-04] MEDS: LevETIRAcetam 250 MG TABLET PO SCH ×2 (09:12→16:20)
[2018-06-04] MEDS: AmLODIPine BESYLATE 5 MG TABLET PO SCH (11:32)
[2018-06-04] MEDS: INSULIN LISPRO 100 UNITS/ML SQ PRN (11:32)
[2018-06-04 11:34] LABS: GLUCOMETER DEV NAME(LOC) 3EX.; GLUCOSE,POINT OF CARE 128 MG/DL (70-110)
[2018-06-04 12:29] VITALS: BP 143/77
[2018-06-04 16:29] VITALS: BP 139/84
[2018-06-04] MEDS ORDERED: PHENY100 PO (16:44)
[2018-06-04] MEDS ORDERED: DULO20CA30 PO (16:44)
[2018-06-04] MEDS ORDERED: LEVE250T55 PO (16:44)
[2018-06-04 16:55] LABS: GLUCOMETER DEV NAME(LOC) 3EX.; GLUCOSE,POINT OF CARE 137 MG/DL (70-110)
[2018-06-04] MEDS: LORazepam 0.5 MG TABLET PO PRN (18:09)
[2018-06-04 18:39] LABS: GLUCOMETER DEV NAME(LOC) 3EX.; GLUCOSE,POINT OF CARE 159 MG/DL (70-110)
[2018-06-04] MEDS: AmLODIPine BESYLATE 10 MG TABLET PO SCH (20:46)
[2018-06-04 21:25] LABS: GLUCOMETER DEV NAME(LOC) 3EX.; GLUCOSE,POINT OF CARE 126 MG/DL (70-110)
[2018-06-05 05:25] LABS: GLUCOMETER DEV NAME(LOC) 3EX.; GLUCOSE,POINT OF CARE 117 MG/DL (70-110)
[2018-06-05] MEDS: MetFORMIN HCL 500 MG TABLET PO SCH (06:47)
[2018-06-05 08:00] VITALS: BP 139/70
[2018-06-05] MEDS: ASPIRIN 81 MG CHEWABLE TABLET PO SCH (08:42)
[2018-06-05] MEDS: PANTOPRAZOLE SODIUM 40 MG DR TABLET PO SCH (08:42)
[2018-06-05] MEDS: LOSARTAN POTASSIUM 50 MG TABLET PO SCH (08:42)
[2018-06-05] MEDS: LevETIRAcetam 250 MG TABLET PO SCH (08:42)
[2018-06-05] MEDS: HydrALAZINE HCL 25 MG TABLET PO SCH ×2 (08:42→12:51)
[2018-06-05] MEDS: DULoxetine HCL 20 MG CAPSULE PO SCH (08:43)
[2018-06-05] MEDS: AmLODIPine BESYLATE 5 MG TABLET PO SCH (08:43)
[2018-06-05] MEDS: DOCUSATE SODIUM 100 MG CAPSULE PO SCH (08:43)
[2018-06-05] MEDS: PHENYTOIN SODIUM 100 MG ER CAPSULE PO SCH (08:43)
[2018-06-05] MEDS ORDERED: DSS100 PO (10:56)
[2018-06-05] MEDS ORDERED: HYDR-2924 PO (10:56)
[2018-06-05] MEDS ORDERED: METF-960 PO (10:56)
[2018-06-05] MEDS ORDERED: ASPI81 PO (10:56)
[2018-06-05] MEDS ORDERED: PANT40TA25 PO (10:56)
[2018-06-05] MEDS ORDERED: AMLO-511 PO (10:56)
[2018-06-05 11:29] LABS: GLUCOMETER DEV NAME(LOC) 3EX.; GLUCOSE,POINT OF CARE 143 MG/DL (70-110)
[2018-06-05] MEDS: INSULIN LISPRO 100 UNITS/ML SQ PRN (11:41)
[2018-06-05 12:49] VITALS: BP 157/66
[2018-06-05] MEDS: IBUPROFEN 400 MG TABLET PO PRN (14:18)
== END 2018-06-05 14:30 | disposition home or self-care (01) | DRG 751 ==
LOC: 3EI 21:28
PROVIDERS: ADMIT Psychiatry & Neurology Psychiatry; ATTEND Psychiatry & Neurology Psychiatry
DX: F33.2 Major depressive disorder, recurrent severe without psychotic features (principal); E11.9 Type 2 diabetes mellitus without complications; R45.851 Suicidal ideations; G40.909 Epilepsy, unspecified, not intractable, without status epilepticus; E78.00 Pure hypercholesterolemia, unspecified; E78.5 Hyperlipidemia, unspecified; F17.200 Nicotine dependence, unspecified, uncomplicated; F41.0 Panic disorder [episodic paroxysmal anxiety]; G89.29 Other chronic pain; I10 Essential (primary) hypertension; K21.9 Gastro-esophageal reflux disease without esophagitis; K75.9 Inflammatory liver disease, unspecified; M19.90 Unspecified osteoarthritis, unspecified site; Z79.899 Other long term (current) drug therapy; Z90.710 Acquired absence of both cervix and uterus; Z91.14 Patient's other noncompliance with medication regimen; Z96.641 Presence of right artificial hip joint; Z91.5 Personal history of self-harm; M54.9 Dorsalgia, unspecified; H91.90 Unspecified hearing loss, unspecified ear
CPT/HCPCS: 70450; 83036; 84443; 87081; 93005; G0482; Q0162

== ENCOUNTER 2018-10-04 12:45 | Emergency (ER) | payer MEDICARE, OTHER ==
[~2018-10-04] VITALS: Ht 154.9 cm; Wt 61.4 kg
[~2018-10-04 12:45] MED LIST changes: +ASPI81 PO; -BUSP5TAB20 PO; +DSS100 PO; +DULO20CA30 PO; +HYDR-2924 PO; -LOSA25TA41 PO; +LOSA50TA64 PO; +METF-960 PO; -METO25XL PO; +PANT40TA25 PO
[2018-10-04 14:55] LABS: BASOPHILS % (AUTO) 0.9 % (0.0-2.0); EOSINOPHILS % (AUTO) 0.1 % (1.0-6.0); HEMATOCRIT 39.1 % (36-46); HEMOGLOBIN 13.1 g/dL (12.0-16.0); LYMPHOCYTES # (AUTO) 1.2 K/uL (1.0-4.8); LYMPHOCYTES % (AUTO) 15.1 % (22.0-44.0); MEAN CORPUSCULAR HEMOGLOBIN 29.2 pg (26.0-34.0); MEAN CORPUSCULAR HGB CONC 33.6 G/dL (31.0-37.0); MEAN CORPUSCULAR VOLUME 87 fL (80-100); MONOCYTES # (AUTO) 0.5 K/uL (0.1-1.0); MONOCYTES % (AUTO) 5.6 % (2.0-9.0); NEUTROPHILS # (AUTO) 6.3 K/uL (1.8-7.7); NEUTROPHILS % (AUTO) 78.3 % (40.0-70.0); PLATELET COUNT (AUTO) 184 K/uL (150-450); RED BLOOD CELL COUNT(AUTO) 4.49 MIL/uL (4.00-5.20); RED CELL DISTRIBUTION WIDTH 13.9 % (11.5-14.5)
[2018-10-04 15:08] LABS: ANION GAP 8 mmol/L (8-16); CALCIUM, TOTAL 9.6 mg/dL (8.8-10.5); CARBON DIOXIDE 28 mmol/L (22-29); CHLORIDE 103 mmol/L (98-107); CREATININE 0.87 mg/dL (0.60-1.30); GLOMERULAR FILTR. RATE CALC > 60 mL/min (>60); GLUCOSE,RANDOM 251 mg/dL (70-110); POTASSIUM 4.7 mmol/L (3.5-5.1); SODIUM SERUM 139 mmol/L (136-145); UREA NITROGEN, BLOOD 18 mg/dL (7-18)
[2018-10-04 15:11] LABS: ALANINE AMINOTRANSFERASE 38 U/L (12-78); ALKALINE PHOSPHATASE 103 U/L (46-116); ASPARTATE AMINOTRANSFERASE 33 U/L (15-37); BILIRUBIN,TOTAL 0.3 mg/dL (0.1-1.0); PHENYTOIN (DILANTIN) 8.7 mcg/mL (10.0-20.0); TOTAL PROTEIN, SERUM 7.9 g/dL (6.4-8.2)
[2018-10-04] MEDS ORDERED: PHENYTOIN SODIUM 500 MG in SODIUM CHLORIDE 0.9% 100 ML IV ONE (16:30)
[2018-10-04 18:06] LABS: APPEARANCE,URINE CLEAR (CLEAR); BILIRUBIN,URINE NEGATIVE (NEGATIVE); GLUCOSE, URINE (UA) >=1000 mg/dL (NEGATIVE); KETONES,URINE NEGATIVE (NEGATIVE); LEUKOCYTE ESTERASE ,URINE NEGATIVE (NEGATIVE); NITRATE,URINE NEGATIVE (NEGATIVE); OCCULT BLOOD,URINE NEGATIVE (NEGATIVE); PROTEIN,URINE NEGATIVE (NEGATIVE); UROBILINOGEN,URINE 0.2 mg/dL (<=1.0)
[2018-10-04 18:13] LABS: BACTERIA,URINE Rare /HPF (None Seen); RBC,URINE 0-2 /HPF (0-2); SQUAMOUS EPITHELIAL CELL,UR Rare /LPF (None Seen); WBC,URINE 0-2 /HPF (0-5)
[2018-10-04 18:40] VITALS: BP 152/74
== END 2018-10-04 19:07 | disposition home or self-care (01) ==
LOC: EMS 12:48
DX: G40.909 Epilepsy, unspecified, not intractable, without status epilepticus (principal); M79.10 Myalgia, unspecified site; I25.10 Atherosclerotic heart disease of native coronary artery without angina pectoris; F32.9 Major depressive disorder, single episode, unspecified; F41.9 Anxiety disorder, unspecified; F20.9 Schizophrenia, unspecified; E78.00 Pure hypercholesterolemia, unspecified; I10 Essential (primary) hypertension; Z90.710 Acquired absence of both cervix and uterus; Z79.82 Long term (current) use of aspirin; Z79.84 Long term (current) use of oral hypoglycemic drugs
CPT/HCPCS: 36415; 80053; 80185; 81001; 82962; 85025; 96365; 99285; J1165; J7050

== ENCOUNTER 2019-07-04 11:05 | Inpatient (IN) | payer MEDICARE, OTHER ==
[~2019-07-04] VITALS: Ht 170.2 cm; Wt 60.2 kg
[~2019-07-04 11:05] MED LIST changes: -AMLO-512 PO; +AMLO10TA7 PO; +ASPI-728 PO; -ASPI81 PO; +LOSA-88 PO; -LOSA50TA64 PO
[2019-07-04 11:52] LABS: BASOPHILS % (AUTO) 0.3 % (0.0-2.0); EOSINOPHILS % (AUTO) 0.1 % (1.0-6.0); HEMOGLOBIN 13.4 g/dL (12.0-16.0); LYMPHOCYTES # (AUTO) 0.8 K/uL (1.0-4.8); LYMPHOCYTES % (AUTO) 10.3 % (22.0-44.0); MEAN CORPUSCULAR HGB CONC 34.3 G/dL (31.0-37.0); MEAN CORPUSCULAR VOLUME 85 fL (80-100); MONOCYTES # (AUTO) 0.3 K/uL (0.1-1.0); MONOCYTES % (AUTO) 3.3 % (2.0-9.0); NEUTROPHILS # (AUTO) 6.7 K/uL (1.8-7.7); PLATELET COUNT (AUTO) 200 K/uL (150-450); RED BLOOD CELL COUNT(AUTO) 4.61 MIL/uL (4.00-5.20); RED CELL DISTRIBUTION WIDTH 13.4 % (11.5-14.5)
[2019-07-04 12:03] LABS: CALCIUM, TOTAL 9.3 mg/dL (8.8-10.5); CREATININE 0.96 mg/dL (0.60-1.30); POTASSIUM 3.9 mmol/L (3.5-5.1)
[2019-07-04 12:04] LABS: SALICYLATE 3.8 mg/dL (2.8-20.0)
[2019-07-04 12:10] LABS: ALBUMIN 3.9 g/dL (3.4-5.0); BILIRUBIN,TOTAL 0.4 mg/dL (0.1-1.0); TOTAL PROTEIN, SERUM 7.5 g/dL (6.4-8.2)
[2019-07-04 12:11] LABS: AMMONIA 14 umol/L (11-32); TROPONIN I < 0.02 ng/mL (0.00-0.05)
[2019-07-04 12:19] LABS: ACETAMINOPHEN < 2 mcg/mL (10-30); PHENYTOIN (DILANTIN) < 0.5 mcg/mL (10.0-20.0)
[2019-07-04 12:49] LABS: B-TYPE NATRIURETIC PEPTIDE 91 pg/mL (0-100)
[2019-07-04 13:22] LABS: APPEARANCE,URINE CLEAR (CLEAR); BILIRUBIN,URINE NEGATIVE (NEGATIVE); GLUCOSE, URINE (UA) 250 mg/dL (NEGATIVE); KETONES,URINE NEGATIVE (NEGATIVE); LEUKOCYTE ESTERASE ,URINE NEGATIVE (NEGATIVE); NITRATE,URINE NEGATIVE (NEGATIVE); OCCULT BLOOD,URINE NEGATIVE (NEGATIVE); PH,URINE 6.5 (5.0-8.0); PROTEIN,URINE NEGATIVE (NEGATIVE); UROBILINOGEN,URINE 0.2 mg/dL (<=1.0)
[2019-07-04 13:29] LABS: AMPHET/METH SCREEN,URINE NEGATIVE (NEGATIVE); BARBITURATE SCREEN, URINE NEGATIVE (NEGATIVE); BENZODIAZEPINES SCREEN,URINE NEGATIVE (NEGATIVE); CANNABINOID SCREEN,URINE NEGATIVE (NEGATIVE); COCAINE SCREEN,URINE NEGATIVE (NEGATIVE); METHADONE SCREEN, URINE NEGATIVE (NEGATIVE); OPIATE SCREEN,URINE NEGATIVE (NEGATIVE)
[2019-07-04 13:30] LABS: PHENCYCLIDINE SCREEN,URINE NEGATIVE (NEGATIVE)
[2019-07-04 13:31] LABS: BACTERIA,URINE None Seen /HPF (None Seen); RBC,URINE None Seen /HPF (0-2); SQUAMOUS EPITHELIAL CELL,UR Rare /LPF (None Seen); WBC,URINE None Seen /HPF (0-5)
[2019-07-04] MEDS ORDERED: PHENYTOIN SODIUM 100 MG ER CAPSULE PO ONE (14:15)
[2019-07-04] MEDS ORDERED: LevETIRAcetam 500 MG TABLET PO ONE (14:15)
[2019-07-04] MEDS ORDERED: ACETAMINOPHEN 500 MG TABLET PO ONE (15:00)
[2019-07-04] MEDS ORDERED: ONDANSETRON HCL 4 MG/2 ML VIAL IVP PRN ×2 (18:15→21:30)
[2019-07-04] MEDS ORDERED: ACETAMINOPHEN 325 MG TABLET PO PRN (18:15)
[2019-07-04] MEDS ORDERED: 0.9% SODIUM CHLORIDE 10 ML SYRINGE IVP PRN ×2 (18:15→21:30)
[2019-07-04 20:14] LABS: GLUCOSE,POINT OF CARE 215 MG/DL (70-110)
[2019-07-04] MEDS ORDERED: POTASSIUM CHL 10 MEQ/WATER 50 ML IV PRN (21:30)
[2019-07-04] MEDS ORDERED: ZOLPIDEM TARTRATE 5 MG TABLET PO PRN (21:30)
[2019-07-04] MEDS ORDERED: MAGNESIUM SULFATE 2 GM/WATER 50 ML IV PRN (21:30)
[2019-07-04] MEDS ORDERED: DEXTROSE 50%-WATER 25 GM/50 ML SYRINGE IVP PRN (21:30)
[2019-07-04] MEDS ORDERED: MAGNESIUM SULFATE 4 GM/WATER 100 ML IV PRN (21:30)
[2019-07-04] MEDS ORDERED: POTASSIUM CHLORIDE 20 MEQ ER TABLET PO PRN (21:30)
[2019-07-04] MEDS ORDERED: MAGNESIUM OXIDE 400 MG TABLET PO PRN (21:30)
[2019-07-04] MEDS ORDERED: LORazepam 2 MG/ML VIAL IVP PRN (21:30)
[2019-07-04 21:39] VITALS: BP 143/82
[2019-07-04] MEDS: DOCUSATE SODIUM 100 MG CAPSULE PO SCH (22:44)
[2019-07-04] MEDS: ACETAMINOPHEN 325 MG TABLET PO PRN (22:44)
[2019-07-04] MEDS: PHENYTOIN SODIUM 100 MG ER CAPSULE PO SCH (22:45)
[2019-07-04] MEDS: LevETIRAcetam 250 MG TABLET PO SCH (22:45)
[2019-07-04] MEDS: AmLODIPine BESYLATE 10 MG TABLET PO SCH (22:45)
[2019-07-04] MEDS: INSULIN LISPRO 100 UNITS/ML SQ PRN (22:46)
[2019-07-04 23:28] VITALS: BP 147/98
[2019-07-05] MEDS ORDERED: MORPHINE SULFATE 2 MG/ML SYRINGE IVP PRN
[2019-07-05 04:41] VITALS: BP 122/79
[2019-07-05 05:08] LABS: GLUCOMETER DEV NAME(LOC) 6N.2; GLUCOSE,POINT OF CARE 162 MG/DL (70-110)
[2019-07-05 05:53] LABS: GLUCOMETER DEV NAME(LOC) 5S.1; GLUCOSE,POINT OF CARE 172 MG/DL (70-110)
[2019-07-05] MEDS: INSULIN LISPRO 100 UNITS/ML SQ PRN ×4 (06:24→21:14)
[2019-07-05 06:47] LABS: BASOPHILS % (AUTO) 0.7 % (0.0-2.0); EOSINOPHILS % (AUTO) 1.1 % (1.0-6.0); HEMATOCRIT 37.4 % (36-46); HEMOGLOBIN 12.9 g/dL (12.0-16.0); LYMPHOCYTES # (AUTO) 2.2 K/uL (1.0-4.8); LYMPHOCYTES % (AUTO) 26.9 % (22.0-44.0); MEAN CORPUSCULAR HEMOGLOBIN 29.3 pg (26.0-34.0); MEAN CORPUSCULAR HGB CONC 34.3 G/dL (31.0-37.0); MEAN CORPUSCULAR VOLUME 86 fL (80-100); MONOCYTES # (AUTO) 0.5 K/uL (0.1-1.0); MONOCYTES % (AUTO) 6.3 % (2.0-9.0); NEUTROPHILS # (AUTO) 5.4 K/uL (1.8-7.7); PLATELET COUNT (AUTO) 211 K/uL (150-450); RED BLOOD CELL COUNT(AUTO) 4.38 MIL/uL (4.00-5.20); RED CELL DISTRIBUTION WIDTH 13.5 % (11.5-14.5)
[2019-07-05 07:12] LABS: ALBUMIN 3.7 g/dL (3.4-5.0); CALCIUM, TOTAL 9.1 mg/dL (8.8-10.5); CREATININE 0.98 mg/dL (0.60-1.30); PHENYTOIN (DILANTIN) 3.8 mcg/mL (10.0-20.0); POTASSIUM 3.7 mmol/L (3.5-5.1)
[2019-07-05 08:04] VITALS: BP 129/75
[2019-07-05] MEDS: MetFORMIN HCL 500 MG TABLET PO SCH ×2 (08:27→17:06)
[2019-07-05] MEDS: PANTOPRAZOLE SODIUM 40 MG DR TABLET PO SCH (08:27)
[2019-07-05] MEDS: ASPIRIN 81 MG CHEWABLE TABLET PO SCH (08:28)
[2019-07-05] MEDS: DOCUSATE SODIUM 100 MG CAPSULE PO SCH ×2 (08:28→21:07)
[2019-07-05] MEDS: LOSARTAN POTASSIUM 50 MG TABLET PO SCH (08:28)
[2019-07-05] MEDS: HydrALAZINE HCL 25 MG TABLET PO SCH ×3 (08:29→21:00)
[2019-07-05] MEDS: PHENYTOIN SODIUM 100 MG ER CAPSULE PO SCH ×2 (08:30→21:07)
[2019-07-05] MEDS ORDERED: PANTOPRAZOLE SODIUM 40 MG DR TABLET PO SCH (09:00)
[2019-07-05] MEDS: LevETIRAcetam 250 MG TABLET PO SCH ×2 (09:51→21:07)
[2019-07-05] MEDS: DULoxetine HCL 20 MG CAPSULE PO SCH (09:52)
[2019-07-05] MEDS ORDERED: GADOBUTROL 1 MMOL/ML 10 ML VIAL IVP ONE (11:41)
[2019-07-05 11:45] VITALS: BP 115/75
[2019-07-05] MEDS: ACETAMINOPHEN 325 MG TABLET PO PRN (12:17)
[2019-07-05 12:21] LABS: GLUCOMETER DEV NAME(LOC) 5S.1; GLUCOSE,POINT OF CARE 154 MG/DL (70-110)
[2019-07-05 16:29] VITALS: BP 141/79
[2019-07-05 20:01] VITALS: BP 103/63
[2019-07-05] MEDS: AmLODIPine BESYLATE 10 MG TABLET PO SCH (21:07)
[2019-07-05 21:35] LABS: GLUCOMETER DEV NAME(LOC) 5S.1; GLUCOSE,POINT OF CARE 195 MG/DL (70-110)
[2019-07-05 23:34] VITALS: BP 123/71
[2019-07-06 05:38] VITALS: BP 125/83
[2019-07-06] MEDS: INSULIN LISPRO 100 UNITS/ML SQ PRN ×2 (05:56→12:27)
[2019-07-06] MEDS: MetFORMIN HCL 500 MG TABLET PO SCH (08:00)
[2019-07-06] MEDS: HydrALAZINE HCL 25 MG TABLET PO SCH (08:15)
[2019-07-06] MEDS: ASPIRIN 81 MG CHEWABLE TABLET PO SCH (08:16)
[2019-07-06] MEDS: LOSARTAN POTASSIUM 50 MG TABLET PO SCH (08:16)
[2019-07-06] MEDS: DOCUSATE SODIUM 100 MG CAPSULE PO SCH (08:16)
[2019-07-06] MEDS: DULoxetine HCL 20 MG CAPSULE PO SCH (08:16)
[2019-07-06] MEDS: PHENYTOIN SODIUM 100 MG ER CAPSULE PO SCH (08:16)
[2019-07-06] MEDS: LevETIRAcetam 250 MG TABLET PO SCH (08:16)
[2019-07-06] MEDS: PANTOPRAZOLE SODIUM 40 MG DR TABLET PO SCH (08:17)
[2019-07-06 08:21] LABS: GLUCOMETER DEV NAME(LOC) 5S.2A; GLUCOSE,POINT OF CARE 148 MG/DL (70-110)
[2019-07-06 08:21] LABS: GLUCOMETER DEV NAME(LOC) 5S.1; GLUCOSE,POINT OF CARE 161 MG/DL (70-110)
[2019-07-06 11:21] VITALS: BP 125/69
[2019-07-06 11:50] LABS: GLUCOMETER DEV NAME(LOC) 5N.1; GLUCOSE,POINT OF CARE 169 MG/DL (70-110)
== END 2019-07-06 14:33 | disposition left against medical advice (07) | DRG 101 ==
LOC: EMS 11:05 → 6N 19:47 → 5S 23:00 → 5N 07-06 06:49
PROVIDERS: ADMIT Internal Medicine; ATTEND Internal Medicine
DX: G40.909 Epilepsy, unspecified, not intractable, without status epilepticus (principal); N39.0 Urinary tract infection, site not specified; F41.9 Anxiety disorder, unspecified; F32.9 Major depressive disorder, single episode, unspecified; F20.9 Schizophrenia, unspecified; I25.10 Atherosclerotic heart disease of native coronary artery without angina pectoris; K75.9 Inflammatory liver disease, unspecified; I10 Essential (primary) hypertension; Z53.29 Procedure and treatment not carried out because of patient's decision for other reasons; E78.5 Hyperlipidemia, unspecified; E78.00 Pure hypercholesterolemia, unspecified; Z90.710 Acquired absence of both cervix and uterus; Z82.49 Family history of ischemic heart disease and other diseases of the circulatory system; F03.90 Unspecified dementia, unspecified severity, without behavioral disturbance, psychotic disturbance, mood disturbance, and anxiety; E11.9 Type 2 diabetes mellitus without complications
CPT/HCPCS: 70450; 70553; 83735; 93005; 97116; 97162; A9585; G0480; G0481; J2060; J2270

== ENCOUNTER 2019-08-19 08:15 | Inpatient (IN) | payer MEDICARE, OTHER ==
[~2019-08-19] VITALS: Ht 154.9 cm; Wt 63.5 kg
[2019-08-19 08:50] LABS: BASOPHILS % (AUTO) 0.5 % (0.0-2.0); EOSINOPHILS % (AUTO) 0.6 % (1.0-6.0); HEMATOCRIT 41.9 % (36-46); HEMOGLOBIN 14.4 g/dL (12.0-16.0); LYMPHOCYTES # (AUTO) 1.4 K/uL (1.0-4.8); LYMPHOCYTES % (AUTO) 17.7 % (22.0-44.0); MEAN CORPUSCULAR HEMOGLOBIN 29.5 pg (26.0-34.0); MEAN CORPUSCULAR HGB CONC 34.4 G/dL (31.0-37.0); MEAN CORPUSCULAR VOLUME 86 fL (80-100); MONOCYTES # (AUTO) 0.4 K/uL (0.1-1.0); MONOCYTES % (AUTO) 5.4 % (2.0-9.0); NEUTROPHILS # (AUTO) 5.9 K/uL (1.8-7.7); NEUTROPHILS % (AUTO) 75.8 % (40.0-70.0); PLATELET COUNT (AUTO) 218 K/uL (150-450); RED BLOOD CELL COUNT(AUTO) 4.89 MIL/uL (4.00-5.20); RED CELL DISTRIBUTION WIDTH 13.8 % (11.5-14.5)
[2019-08-19 09:02] LABS: ANION GAP 8 mmol/L (8-16); CALCIUM, TOTAL 9.9 mg/dL (8.8-10.5); CARBON DIOXIDE 26 mmol/L (22-29); CHLORIDE 100 mmol/L (98-107); CREATININE 0.88 mg/dL (0.60-1.30); GLUCOSE,RANDOM 242 mg/dL (70-110); POTASSIUM 3.9 mmol/L (3.5-5.1); SODIUM SERUM 134 mmol/L (136-145); UREA NITROGEN, BLOOD 18 mg/dL (7-18)
[2019-08-19 09:03] LABS: PROTHROMBIN TIME 10.2 SEC (9.4-11.6)
[2019-08-19 09:05] LABS: GLOMERULAR FILTR. RATE CALC > 60 mL/min (>60)
[2019-08-19] MEDS ORDERED: LevETIRAcetam 1,000 MG in DEXTROSE 5%-WATER 100 ML IV ONE (09:15)
[2019-08-19] MEDS ORDERED: ACETAMINOPHEN 500 MG TABLET PO ONE (09:15)
[2019-08-19 09:27] LABS: ALANINE AMINOTRANSFERASE 25 U/L (12-78); ALBUMIN 4.2 g/dL (3.4-5.0); ALKALINE PHOSPHATASE 90 U/L (46-116); ASPARTATE AMINOTRANSFERASE 19 U/L (15-37); BILIRUBIN,TOTAL 0.4 mg/dL (0.1-1.0); CREATINE KINASE, TOTAL ONLY 79 U/L (26-192); TOTAL PROTEIN, SERUM 8.5 g/dL (6.4-8.2)
[2019-08-19 09:41] LABS: B-TYPE NATRIURETIC PEPTIDE 39 pg/mL (0-100)
[2019-08-19 11:06] LABS: APPEARANCE,URINE CLEAR (CLEAR); BILIRUBIN,URINE NEGATIVE (NEGATIVE); GLUCOSE, URINE (UA) 500 mg/dL (NEGATIVE); KETONES,URINE NEGATIVE (NEGATIVE); LEUKOCYTE ESTERASE ,URINE NEGATIVE (NEGATIVE); NITRATE,URINE NEGATIVE (NEGATIVE); OCCULT BLOOD,URINE NEGATIVE (NEGATIVE); PROTEIN,URINE NEGATIVE (NEGATIVE); UROBILINOGEN,URINE 0.2 mg/dL (<=1.0)
[2019-08-19] MEDS ORDERED: SODIUM CHLORIDE 0.9% 1,000 ML IV ONE (11:15)
[2019-08-19] MEDS ORDERED: MECLIZINE HCL 25 MG TABLET PO ONE (11:15)
[2019-08-19 11:28] LABS: BACTERIA,URINE None Seen /HPF (None Seen); RBC,URINE None Seen /HPF (0-2); WBC,URINE None Seen /HPF (0-5)
[2019-08-19] MEDS ORDERED: 0.9% SODIUM CHLORIDE 10 ML SYRINGE IVP PRN (12:00)
[2019-08-19] MEDS ORDERED: ONDANSETRON HCL 4 MG/2 ML VIAL IVP PRN ×3 (12:00→17:45)
[2019-08-19] MEDS ORDERED: ACETAMINOPHEN 325 MG TABLET PO PRN ×3 (12:00→17:45)
[2019-08-19 15:29] VITALS: BP 156/84
[2019-08-19] MEDS ORDERED: ZOLPIDEM TARTRATE 10 MG TABLET PO PRN (16:15)
[2019-08-19] MEDS ORDERED: MORPHINE SULFATE 2 MG/ML SYRINGE IVP PRN ×3 (16:15→21:45)
[2019-08-19] MEDS ORDERED: IPRATROPIUM BROMIDE 0.5 MG/2.5 ML NEB SOLUTION NEB PRN (16:15)
[2019-08-19] MEDS ORDERED: MECLIZINE HCL 25 MG TABLET PO PRN (17:30)
[2019-08-19] MEDS ORDERED: LORazepam 2 MG/ML VIAL IVP PRN (17:30)
[2019-08-19 17:34] VITALS: BP 139/97
[2019-08-19] MEDS: DULoxetine HCL 20 MG CAPSULE PO SCH (17:45)
[2019-08-19] MEDS ORDERED: NITROGLYCERIN 0.4 MG SUBLINGUAL TABLET #25 SL PRN (17:45)
[2019-08-19] MEDS: ASPIRIN 81 MG CHEWABLE TABLET PO SCH (17:45)
[2019-08-19] MEDS ORDERED: NITROGLYCERIN 2% (1 GM=INCH) PACKET TP PRN (17:45)
[2019-08-19] MEDS: PANTOPRAZOLE SODIUM 40 MG DR TABLET PO SCH (17:45)
[2019-08-19] MEDS: NITROGLYCERIN 2% (1 GM=INCH) PACKET TP SCH (18:00)
[2019-08-19 19:27] VITALS: BP 138/81
[2019-08-19] MEDS ORDERED: HydrALAZINE HCL 50 MG TABLET PO SCH (21:00)
[2019-08-19] MEDS: DOCUSATE SODIUM 100 MG CAPSULE PO SCH (22:19)
[2019-08-19] MEDS: PHENYTOIN SODIUM 100 MG ER CAPSULE PO SCH (22:19)
[2019-08-19] MEDS: HydrALAZINE HCL 25 MG TABLET PO SCH (22:20)
[2019-08-19] MEDS: AmLODIPine BESYLATE 10 MG TABLET PO SCH (22:21)
[2019-08-19] MEDS: LevETIRAcetam 250 MG TABLET PO SCH (22:24)
[2019-08-19 23:16] VITALS: BP 123/79
[2019-08-20] VITALS (7 sets, daily range): BP systolic 102–142; BP diastolic 55–94
[2019-08-20] MEDS: NITROGLYCERIN 2% (1 GM=INCH) PACKET TP SCH ×4 (00:49→17:18)
[2019-08-20] MEDS: HYDROCODONE/ACETAMINOPHEN 5-325 MG TABLET PO PRN ×2 (01:05→11:53)
[2019-08-20 06:52] LABS: BASOPHILS % (AUTO) 0.9 % (0.0-2.0); EOSINOPHILS % (AUTO) 1.8 % (1.0-6.0); HEMATOCRIT 41.3 % (36-46); HEMOGLOBIN 14.1 g/dL (12.0-16.0); LYMPHOCYTES # (AUTO) 2.4 K/uL (1.0-4.8); LYMPHOCYTES % (AUTO) 26.3 % (22.0-44.0); MEAN CORPUSCULAR HEMOGLOBIN 29.2 pg (26.0-34.0); MEAN CORPUSCULAR VOLUME 86 fL (80-100); MONOCYTES # (AUTO) 0.6 K/uL (0.1-1.0); MONOCYTES % (AUTO) 6.9 % (2.0-9.0); NEUTROPHILS # (AUTO) 5.7 K/uL (1.8-7.7); NEUTROPHILS % (AUTO) 64.1 % (40.0-70.0); RED BLOOD CELL COUNT(AUTO) 4.81 MIL/uL (4.00-5.20); RED CELL DISTRIBUTION WIDTH 13.8 % (11.5-14.5)
[2019-08-20 07:11] LABS: PLATELET COUNT (AUTO) 199 K/uL (150-450)
[2019-08-20 07:55] LABS: ALANINE AMINOTRANSFERASE 22 U/L (12-78); ALBUMIN 3.5 g/dL (3.4-5.0); ALKALINE PHOSPHATASE 76 U/L (46-116); ANION GAP 7 mmol/L (8-16); ASPARTATE AMINOTRANSFERASE 19 U/L (15-37); BILIRUBIN,TOTAL 0.4 mg/dL (0.1-1.0); CALCIUM, TOTAL 9.2 mg/dL (8.8-10.5); CARBON DIOXIDE 27 mmol/L (22-29); CHLORIDE 101 mmol/L (98-107); CHOL/HDL RATIO 2.6 (3.9-5.7); CHOLESTEROL 218 mg/dL (131-200); CREATININE 0.83 mg/dL (0.60-1.30); GLUCOSE,RANDOM 211 mg/dL (70-110); HDL CHOLESTEROL 84 mg/dL (40-60); LDL CHOL (CALC.) 114 mg/dL (0-130); POTASSIUM 3.7 mmol/L (3.5-5.1); SODIUM SERUM 135 mmol/L (136-145); TOTAL PROTEIN, SERUM 7.2 g/dL (6.4-8.2); TRIGLYCERIDES 100 mg/dL (15-150); UREA NITROGEN, BLOOD 16 mg/dL (7-18)
[2019-08-20 07:57] LABS: GLOMERULAR FILTR. RATE CALC > 60 mL/min (>60)
[2019-08-20] MEDS ORDERED: ASPIRIN 81 MG CHEWABLE TABLET PO SCH (09:00)
[2019-08-20] MEDS: DOCUSATE SODIUM 100 MG CAPSULE PO SCH ×2 (09:31→21:27)
[2019-08-20] MEDS: PANTOPRAZOLE SODIUM 40 MG DR TABLET PO SCH (09:31)
[2019-08-20] MEDS: LevETIRAcetam 250 MG TABLET PO SCH ×2 (09:31→21:26)
[2019-08-20] MEDS: ASPIRIN 81 MG CHEWABLE TABLET PO SCH (09:32)
[2019-08-20] MEDS: PHENYTOIN SODIUM 100 MG ER CAPSULE PO SCH ×2 (09:32→21:26)
[2019-08-20] MEDS: DULoxetine HCL 20 MG CAPSULE PO SCH (09:35)
[2019-08-20] MEDS: MAGNESIUM HYDROXIDE SUSPENSION 30 ML UDCUP PO PRN (11:53)
[2019-08-20] MEDS: HydrALAZINE HCL 25 MG TABLET PO SCH ×3 (11:54→21:26)
[2019-08-20] MEDS: LOSARTAN POTASSIUM 50 MG TABLET PO SCH (11:54)
[2019-08-20] MEDS: LORazepam 1 MG TABLET PO PRN (14:59)
[2019-08-20] MEDS: AmLODIPine BESYLATE 10 MG TABLET PO SCH (21:28)
[2019-08-21] MEDS: NITROGLYCERIN 2% (1 GM=INCH) PACKET TP SCH ×4 (00:24→17:12)
[2019-08-21 04:29] VITALS: BP 115/66
[2019-08-21 07:25] VITALS: BP 134/82
[2019-08-21] MEDS: DOCUSATE SODIUM 100 MG CAPSULE PO SCH ×2 (09:05→21:09)
[2019-08-21] MEDS: PANTOPRAZOLE SODIUM 40 MG DR TABLET PO SCH (09:05)
[2019-08-21] MEDS: DULoxetine HCL 20 MG CAPSULE PO SCH (09:05)
[2019-08-21] MEDS: ASPIRIN 81 MG CHEWABLE TABLET PO SCH (09:06)
[2019-08-21] MEDS: PHENYTOIN SODIUM 100 MG ER CAPSULE PO SCH ×2 (09:06→21:09)
[2019-08-21] MEDS: HydrALAZINE HCL 25 MG TABLET PO SCH ×3 (09:06→21:09)
[2019-08-21] MEDS: LOSARTAN POTASSIUM 50 MG TABLET PO SCH (09:06)
[2019-08-21] MEDS: LevETIRAcetam 250 MG TABLET PO SCH (09:06)
[2019-08-21] MEDS: LORazepam 1 MG TABLET PO PRN (11:30)
[2019-08-21] MEDS ORDERED: PHENY100 PO (18:52)
[2019-08-21] MEDS ORDERED: LEVE500T53 PO (18:53)
[2019-08-21] MEDS ORDERED: ACET-2247 PO (18:54)
[2019-08-21] MEDS ORDERED: MOM30 PO (18:55)
[2019-08-21] MEDS: LevETIRAcetam 500 MG TABLET PO SCH (21:06)
[2019-08-21] MEDS: AmLODIPine BESYLATE 10 MG TABLET PO SCH (21:09)
[2019-08-21] MEDS: HYDROCODONE/ACETAMINOPHEN 5-325 MG TABLET PO PRN (21:25)
[2019-08-21 22:07] VITALS: BP 135/78
[2019-08-22] VITALS (8 sets, daily range): BP systolic 105–146; BP diastolic 57–78
[2019-08-22] MEDS: LORazepam 1 MG TABLET PO PRN (00:38)
[2019-08-22] MEDS: NITROGLYCERIN 2% (1 GM=INCH) PACKET TP SCH ×4 (05:40→18:55)
[2019-08-22] MEDS: DULoxetine HCL 20 MG CAPSULE PO SCH (08:33)
[2019-08-22] MEDS: LOSARTAN POTASSIUM 50 MG TABLET PO SCH (08:33)
[2019-08-22] MEDS: PHENYTOIN SODIUM 100 MG ER CAPSULE PO SCH ×2 (08:33→21:00)
[2019-08-22] MEDS: ASPIRIN 81 MG CHEWABLE TABLET PO SCH (08:33)
[2019-08-22] MEDS: LevETIRAcetam 500 MG TABLET PO SCH ×2 (08:33→21:00)
[2019-08-22] MEDS: HydrALAZINE HCL 25 MG TABLET PO SCH ×2 (08:33→15:55)
[2019-08-22] MEDS: DOCUSATE SODIUM 100 MG CAPSULE PO SCH ×2 (08:33→21:00)
[2019-08-22] MEDS: PANTOPRAZOLE SODIUM 40 MG DR TABLET PO SCH (08:33)
[2019-08-22] MEDS: MAGNESIUM HYDROXIDE SUSPENSION 30 ML UDCUP PO PRN (08:34)
[2019-08-22] MEDS: AmLODIPine BESYLATE 10 MG TABLET PO SCH (21:00)
[2019-08-23] MEDS: HydrALAZINE HCL 25 MG TABLET PO SCH ×2 (01:10→09:31)
[2019-08-23] MEDS: HYDROCODONE/ACETAMINOPHEN 5-325 MG TABLET PO PRN (04:11)
[2019-08-23 04:45] VITALS: BP 147/88
[2019-08-23] MEDS: NITROGLYCERIN 2% (1 GM=INCH) PACKET TP SCH ×2 (06:10)
[2019-08-23 07:33] VITALS: BP 125/75
[2019-08-23] MEDS: DULoxetine HCL 20 MG CAPSULE PO SCH (09:23)
[2019-08-23] MEDS: PHENYTOIN SODIUM 100 MG ER CAPSULE PO SCH (09:24)
[2019-08-23] MEDS: LevETIRAcetam 500 MG TABLET PO SCH (09:24)
[2019-08-23] MEDS: PANTOPRAZOLE SODIUM 40 MG DR TABLET PO SCH (09:24)
[2019-08-23] MEDS: ASPIRIN 81 MG CHEWABLE TABLET PO SCH (09:24)
[2019-08-23] MEDS: LOSARTAN POTASSIUM 50 MG TABLET PO SCH (09:25)
[2019-08-23] MEDS: DOCUSATE SODIUM 100 MG CAPSULE PO SCH (09:25)
[2019-08-23 11:29] VITALS: BP 150/95
== END 2019-08-23 11:57 | disposition left against medical advice (07) | DRG 313 ==
LOC: EMS 08:20 → 5S 13:31 → 6N 14:22
PROVIDERS: ADMIT Hospitalist; ATTEND Hospitalist
DX: R07.9 Chest pain, unspecified (principal); E87.1 Hypo-osmolality and hyponatremia; R73.9 Hyperglycemia, unspecified; G89.29 Other chronic pain; M54.9 Dorsalgia, unspecified; I10 Essential (primary) hypertension; E78.00 Pure hypercholesterolemia, unspecified; I25.10 Atherosclerotic heart disease of native coronary artery without angina pectoris; F20.9 Schizophrenia, unspecified; Z90.710 Acquired absence of both cervix and uterus
CPT/HCPCS: 70450; 72170; 93005; 93306; 97116; 97162; 97165; 97530; 97535; G0482; J0712; J2270; J7030; J7060

== ENCOUNTER 2019-12-20 13:58 | Emergency (ER) | payer MEDICARE, OTHER ==
[~2019-12-20 13:58] MED LIST changes: +ACET-2247 PO; +AMLO-258 PO; -AMLO10TA7 PO; +DULO20CA27 PO; -DULO20CA30 PO; -LEVE250T55 PO; +LEVE500T53 PO; -LOSA-88 PO; +LOSA50TA37 PO; +MOM30 PO; -PANT40TA25 PO
[2019-12-20] MEDS ORDERED: DOCU-275 PO (16:42)
[2019-12-22] MEDS ORDERED: CEPH-582 PO (15:19)
[2019-12-22] MEDS ORDERED: METF-960 PO (15:19)
== END 2019-12-20 14:00 | disposition left against medical advice (07) ==
LOC: EMS 14:00
DX: R07.9 Chest pain, unspecified (principal); Z53.21 Procedure and treatment not carried out due to patient leaving prior to being seen by health care provider